=== PATIENT | male | born 1950 | race Caucasian/White ===

== ENCOUNTER 2025-01-16 08:56 | Emergency (ER) | payer MEDICARE ==
[2025-01-16 09:20] LABS: BASOPHILS ABSOLUTE AUTO 0.04 K/uL (0.00-0.10); BASOPHILS PERCENT AUTO 0.6 % (0.1-1.3); EOSINOPHILS ABSOLUTE AUTO 0.06 K/uL (0.00-0.40); EOSINOPHILS PERCENT AUTO 1.0 % (0.0-5.4); IMMATURE GRAN ABSOLUTE AUTO 0.03 K/uL (0.00-0.23); IMMATURE GRAN PERCENT AUTO 0.5 % (0.0-0.7); LYMPHOCYTES ABSOLUTE AUTO 1.44 K/uL (0.8-3.3); LYMPHOCYTES PERCENT AUTO 23.2 % (11.4-47.7); MONOCYTES ABSOLUTE AUTO 0.74 K/uL (0.20-0.90); MONOCYTES PERCENT AUTO 11.9 % (3.3-12.6); NEUTROPHILS ABSOLUTE AUTO 3.91 K/uL (1.0-7.6); NEUTROPHILS PERCENT AUTO 62.8 % (40.0-78.1); PLATELET COUNT,PLT 175 K/uL (130-375); RED BLOOD CELL COUNT 3.98 M/uL (4.14-5.76); WHITE BLOOD CELL COUNT,WBC 6.2 K/uL (3.2-11.0)
[2025-01-16] MEDS: Iopamidol 612 MG/ML 100 ML Bottle IV PRN (09:41)
[2025-01-16 09:42] LABS: A/G RATIO 1.3 (1.2-2.2); ALANINE AMINOTRANSFERASE,ALT 34 U/L (12-78); ASPARTATE AMNIOTRANSFERASE,AST 32 U/L (15-37); BILIRUBIN TOTAL 0.6 mg/dL (0.2-1.0); BLOOD UREA NITROGEN,BUN 16 mg/dL (7-18); CARBON DIOXIDE,CO2 25 mmol/L (21-32); CHLORIDE,CL 104 mmol/L (100-108); CREATININE 1.0 mg/dL (0.8-1.3); ESTIMATED GFR 80 mL/min (>60); GLUCOSE RANDOM 93 mg/dL (74-106); POTASSIUM,K 4.0 mmol/L (3.6-5.2); PROTEIN TOTAL,TP 8.1 g/dL (6.4-8.2); SODIUM,NA 141 mmol/L (140-148)
[2025-01-16] MEDS: Bacitracin Oint 1 GM U/D Packet TOP ONE (09:54)
[2025-01-16] MEDS ORDERED: Bacitracin Oint 1 GM U/D Packet TOP ONE (10:12)
[2025-01-16] MEDS: Bacitracin Oint 1 GM U/D Packet ONE (10:22)
[2025-01-16] MEDS ORDERED: Ketorolac 30 MG/ML SDV IM ONE (11:02)
[2025-01-16] MEDS: Ketorolac 30 MG/ML SDV IVPUSH ONE (11:42)
[2025-01-16 12:02] LABS: APPEARANCE,URINE CLEAR (CLEAR); GLUCOSE,URINE NEGATIVE (NEGATIVE); OCCULT BLOOD,URINE SMALL (NEGATIVE)
[2025-01-16 12:17] LABS: SQUAMOUS EPITHELIAL CELLS,UR RARE /HPF; UROTHELIAL CELLS,URINE NOT SEEN /HPF
== END 2025-01-16 12:01 | disposition home or self-care (01) ==
LOC: JP.ED 08:56
DX: S22.31XA Fracture of one rib, right side, initial encounter for closed fracture (principal); S30.1XXA Contusion of abdominal wall, initial encounter; S80.211A Abrasion, right knee, initial encounter; R91.1 Solitary pulmonary nodule; Z79.899 Other long term (current) drug therapy; W10.9XXA Fall (on) (from) unspecified stairs and steps, initial encounter
CPT/HCPCS: 36415; 70450; 71045; 71260; 74177; 80053; 81001; 85025; 96361; 96374; 99283; 99284; J1885; J7030; Q9967